=== PATIENT | female | born 1995 | race Caucasian/White ===

== ENCOUNTER → 2017-06-29 | Outpatient (REF) | payer BC | LOC: M SFHCWAGY 09:13 | PROVIDERS: ATTEND Nurse Practitioner Women's Health | DX: Z12.4 Encounter for screening for malignant neoplasm of cervix (principal); Z11.3 Encounter for screening for infections with a predominantly sexual mode of transmission | CPT/HCPCS: 87491; 87591; G0123 ==

== ENCOUNTER → 2018-01-26 | Outpatient (REF) | payer BC | LOC: M LAB REF 19:24 | DX: N39.0 Urinary tract infection, site not specified (principal) | CPT/HCPCS: 87086 ==

== ENCOUNTER → 2020-02-21 | Outpatient (REF) | payer OTHER, MEDICAID ==
[2020-02-21 15:32] LABS: CHLAMYDIA DNA AMPLIFICATION NEGATIVE (NEGATIVE); GC DNA AMPLIFICATION NEGATIVE (NEGATIVE)
== END ==
LOC: M SFHCWAGY 10:49
PROVIDERS: ATTEND Nurse Practitioner Women's Health
DX: Z12.4 Encounter for screening for malignant neoplasm of cervix (principal); Z11.3 Encounter for screening for infections with a predominantly sexual mode of transmission

== ENCOUNTER → 2022-04-29 | Outpatient (REF) | payer BC | LOC: M PLALAB 14:52 | PROVIDERS: ATTEND Nurse Practitioner Family | DX: Z12.4 Encounter for screening for malignant neoplasm of cervix (principal) ==

== ENCOUNTER → 2022-04-29 | Outpatient (REF) | payer BC | LOC: M WHC 13:00 | PROVIDERS: ATTEND Nurse Practitioner Family | DX: Z12.4 Encounter for screening for malignant neoplasm of cervix (principal) ==

== ENCOUNTER → 2023-05-18 | Outpatient (REF) | payer BC | LOC: M SFHCWAGY 13:47 | PROVIDERS: ATTEND Nurse Practitioner Family | DX: Z12.4 Encounter for screening for malignant neoplasm of cervix (principal) ==

== ENCOUNTER → 2023-10-24 | Outpatient (CLI) | payer BC | LOC: M WHC 14:07 | PROVIDERS: ATTEND Nurse Practitioner Family | DX: N64.4 Mastodynia (principal) ==

== ENCOUNTER → 2024-05-24 | Outpatient (REF) | payer BC ==
[2024-05-28 15:17] LABS: HPV APTIMA Not Detected (Not Detected)
== END ==
LOC: M SFHCWAGY 13:15
PROVIDERS: ATTEND Nurse Practitioner Family
DX: Z12.4 Encounter for screening for malignant neoplasm of cervix (principal)

== ENCOUNTER → 2025-05-30 | Day surgery (SDC) | payer BC ==
[~2025-05-30] VITALS: Ht 157.5 cm; Wt 86.1 kg
[~2025-05-30] MED LIST: ACETAMINOPHEN 1000MG/100ML IV BAG As Ordered ONE; HYDROMORPHONE HCL 0.5 MG/0.5 ML SYRINGE IV PRN; IBUP1TAB7 PO; KETOROLAC 30 MG/ML 1 ML VIAL As Ordered ONE; LIDOCAINE 2% 100 MG/5 ML SDV (FOR ANES.) As Ordered ONE; LR 1,000 ML IV SCH; MIDAZOLAM INJ 2 MG/2 ML VIAL As Ordered ONE; MM S100C PO; NORG1TAB33 PO; ONDA-282 PO; ONDANSETRON 4MG/2ML VIAL As Ordered ONE; PERC5TAB12 PO; ROCURONIUM BROMIDE 50MG/5ML VIAL As Ordered ONE; SUGAMMADEX SODIUM 200 MG/2 ML VIAL As Ordered ONE; SUGAMMADEX SODIUM 500 MG/5 ML VIAL As Ordered ONE; dexAMETHasone 4 MG/ML 1 ML VIAL As Ordered ONE
[2025-05-30] MEDS: LR 1,000 ML IV SCH (12:48)
[2025-05-30 12:51] LABS: PLATELET COUNT, AUTOMATED 356 10^3/uL (150-450)
[2025-05-30] MEDS: SCOPOLAMINE 1MG TRANSDERMAL PATCH TOP ONE (13:03)
[2025-05-30 15:50] VITALS: BP 135/72; TEMP 98.1; O2SAT 100
== END | disposition home or self-care (01) ==
LOC: M SDC 12:11
PROVIDERS: ATTEND Obstetrics & Gynecology
DX: Z30.2 Encounter for sterilization (principal)
CPT/HCPCS: 36415; 58661; 81025; 85027; 86850; 86900; 86901; 88302; J0131; J0665; J1100; J1885; J2250; J2405; J3010

== ENCOUNTER → 2025-07-18 | Outpatient (REF) | payer BC ==
[~2025-07-18] MED LIST changes: -ACETAMINOPHEN 1000MG/100ML IV BAG As Ordered ONE; -HYDROMORPHONE HCL 0.5 MG/0.5 ML SYRINGE IV PRN; -KETOROLAC 30 MG/ML 1 ML VIAL As Ordered ONE; -LIDOCAINE 2% 100 MG/5 ML SDV (FOR ANES.) As Ordered ONE; -LR 1,000 ML IV SCH; -MIDAZOLAM INJ 2 MG/2 ML VIAL As Ordered ONE; -ONDANSETRON 4MG/2ML VIAL As Ordered ONE; -ROCURONIUM BROMIDE 50MG/5ML VIAL As Ordered ONE; -SUGAMMADEX SODIUM 200 MG/2 ML VIAL As Ordered ONE; -SUGAMMADEX SODIUM 500 MG/5 ML VIAL As Ordered ONE; -dexAMETHasone 4 MG/ML 1 ML VIAL As Ordered ONE
[2025-07-22 14:06] LABS: HPV APTIMA Not Detected (Not Detected)
== END ==
LOC: M SFHCWAGY 13:19
PROVIDERS: ATTEND Physician Assistant
DX: Z12.4 Encounter for screening for malignant neoplasm of cervix (principal); Z77.9 Other contact with and (suspected) exposures hazardous to health